=== PATIENT | male | born 1970 | race Caucasian/White ===

== ENCOUNTER 2020-01-09 15:32 | Inpatient (IN) ==
[2020-01-09] MEDS ORDERED: BENZONATATE 100 MG CAPSULE PO ONE (15:49)
[2020-01-09] MEDS ORDERED: SODIUM CHLORIDE 0.9% 1000ML 1,000 ML IV SCH (16:00)
--- NOTE | 2020-01-09 16:06 | XRay Report ---
SINGLE VIEW CHEST CLINICAL HISTORY: Dyspnea. FINDINGS: 2 AP, portable, upright chest radiographs are obtained. No prior studies are available for comparison at the time of dictation. The examination is degraded by portable technique and patient ro tation. The patient is status post midline sternotomy and cardiac valve surgery. The heart is enlarge d. The pulmonary vasculature is noncongested. There is bibasilar atelectasis. The lungs and pleural s paces are otherwise clear. No pneumothorax is seen. The skeletal structures are osteopenic. The bony thorax is grossly intact. IMPRESSION: Cardiomegaly with no acute cardiopulmonary abnormality. ACT 112: Negative or not required by law. Electronically signed by: Khari Flores M.D. 01/09/2020 4:05 PM
[2020-01-09 16:23] LABS: Basophils # (auto) 0.01 K/uL (0-0.2); Basophils % (auto) 0.1 %; Eosinophils # (auto) 0.01 K/uL (0-0.5); Eosinophils % (auto) 0.1 %; Hematocrit (blood only) 44.3 % (42-52); Hemoglobin 14.7 g/dL (14.0-18.0); Immature Granulocytes # (auto) 0.01 K/uL (0.00-0.02); Immature Granulocytes % (auto) 0.1 %; Lymphocytes # (auto) 1.06 K/uL (1.2-3.4); Lymphocytes % (auto) 14.1 %; Mean Corpuscular Hemoglobin 31.7 pg (25-34); Mean Corpuscular Hgb Conc 33.2 g/dL (32-36); Mean Corpuscular Volume 95.7 fL (80-100); Mean Platelet Volume 10.9 fL (7.4-10.4); Monocytes # (auto) 0.85 K/uL (0.11-0.59); Monocytes % (auto) 11.3 %; Neutrophils # (auto) 5.58 K/uL (1.4-6.5); Neutrophils % (auto) 74.3 %; Platelet Count 119 K/uL (130-400); RDW Coefficient of Variation 16.8 % (11.5-14.5); Red Blood Count 4.63 M/uL (4.7-6.1); White Blood Count 7.52 K/uL (4.8-10.8)
[2020-01-09 16:40] LABS: INR 1.1 (0.9-1.1); Partial Thromboplastin Ratio 1.1; Partial Thromboplastin Time 28.5 Seconds (21.0-31.0); Prothrombin Time 11.3 Seconds (9.0-12.0)
[2020-01-09 16:43] LABS: Albumin Level 3.8 gm/dl (3.4-5.0); Calcium 8.7 mg/dl (8.5-10.1); Est GFR (African American) 59.1; Potassium 4.2 mmol/L (3.5-5.1)
[2020-01-09 16:55] LABS: Influenza B virus by PCR Neg for Influ B (Neg)
[2020-01-09 16:58] LABS: Albumin Globulin Ratio 1.1 (0.9-2); Bilirubin,Total 1.1 mg/dl (0.2-1); Globulin 3.5 gm/dl (2.5-4.0); Total Protein 7.3 gm/dl (6.4-8.2); Troponin I 0.114 ng/ml (0-0.045)
[2020-01-09] MEDS ORDERED: OSELTAMIVIR PHOSPHATE 75 MG CAP PO STA (17:09)
[2020-01-09 18:33] LABS: Appearance Urine Clear (Clear); Bacteria Urine Automated Negative (Negative); Bilirubin Urine Negative (Negative); Blood Urine 2+ (Negative); Color Urine Yellow; Epithelial Cell Urine Auto 0-5 /lpf (0-5); Glucose Urine UA Negative (Negative); Ketones Urine Negative (Negative); Leukocyte Esterase Urine Negative (Negative); Nitrite Urine Negative (Negative); Protein Urine Trace (Negative); RBC Urine Automated 0-4 /hpf (0-4); Specific Gravity Urine 1.013 (1.000-1.030); Urobilinogen Urine Negative (Negative)
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
[2020-01-09] MEDS ORDERED: GUAIFENESIN/DEXTROM SYRUP 200MG/20MG 10ML UDC PO PRN (18:49)
[2020-01-09] MEDS ORDERED: ACETAMINOPHEN 325 MG TAB PO PRN (18:49)
[2020-01-09] MEDS ORDERED: ONDANSETRON INJ 2 MG/ML 2 ML VIAL IV PRN (18:49)
[2020-01-09] MEDS: LEVALBUTEROL HCL 0.63 MG/3 ML NEB NEB SCH (19:38)
[2020-01-09] MEDS ORDERED: BENZONATATE 100 MG CAPSULE PO PRN (20:37)
[2020-01-09] MEDS: HEPARIN SODIUM/DEXTROSE 25,000 UNITS/500 ML BAG IV SCH (20:43)
[2020-01-09] MEDS: allopurinoL 300 MG TAB PO SCH (20:44)
[2020-01-09] MEDS: Heparin IV Standard *NO* Bolus IV SCH ×2 (20:54→20:55)
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
[2020-01-09] MEDS: COLCHICINE 0.6 MG TAB PO SCH (21:16)
[2020-01-09] MEDS: ATORVASTATIN 40 MG TAB PO SCH (21:16)
[2020-01-10 00:26] LABS: Appearance Urine Clear (Clear); Bacteria Urine Automated Negative (Negative); Bilirubin Urine Negative (Negative); Blood Urine 2+ (Negative); Cast Urine Automated 0 /lpf (0-5); Color Urine Dark Yellow; Glucose Urine UA Negative (Negative); Ketones Urine Negative (Negative); Leukocyte Esterase Urine Negative (Negative); Nitrite Urine Negative (Negative); Protein Urine 1+ (Negative); Specific Gravity Urine 1.018 (1.000-1.030); Urobilinogen Urine Negative (Negative); WBC Urine Automated 0 /hpf (0-5)
[2020-01-10] MEDS: LEVALBUTEROL HCL 0.63 MG/3 ML NEB NEB SCH ×4 (00:52→18:59)
[2020-01-10 03:25] LABS: Hematocrit (blood only) 41.8 % (42-52); Hemoglobin 14.2 g/dL (14.0-18.0); Mean Corpuscular Hemoglobin 32.2 pg (25-34); Mean Corpuscular Volume 94.8 fL (80-100); Mean Platelet Volume 10.1 fL (7.4-10.4); Platelet Count 110 K/uL (130-400); RDW Coefficient of Variation 16.6 % (11.5-14.5); RDW Standard Deviation 57.8 fL (36.4-46.3); Red Blood Count 4.41 M/uL (4.7-6.1); White Blood Count 6.57 K/uL (4.8-10.8)
[2020-01-10 03:44] LABS: Partial Thromboplastin Ratio 2.4
[2020-01-10 03:47] LABS: Partial Thromboplastin Time 64.3 Seconds (21.0-31.0)
[2020-01-10 03:50] LABS: BUN Creatinine Ratio 19.7 (10-20); Calcium 8.2 mg/dl (8.5-10.1); Creatinine Clr Calc Pharmacy 69.3 ml/min; Est GFR (African American) 56.5; Est GFR (Non-African American) 48.7; Potassium 4.1 mmol/L (3.5-5.1)
[2020-01-10 03:56] LABS: Troponin I 0.127 ng/ml (0-0.045)
[2020-01-10] MEDS: LEVOTHYROXINE SODIUM 50 MCG TABLET PO SCH (05:49)
--- NOTE | 2020-01-10 06:29 | Electrocardiogram Report ---
Test Reason : Blood Pressure : / mmHG Vent. Rate : 088 BPM Atrial Rate : 208 BPM P-R Int : 000 ms QRS Dur : 090 ms QT Int : 370 ms P-R-T Axes : 000 045 -09 degrees QTc Int : 447 ms Atrial fibrillation Low voltage QRS Abnormal ECG No previous ECGs available Confirmed by Nikos Pope ([id number]) on 01/10/2020 6:29:13 AM Referred By: Confirmed By:Nikos Pope
[2020-01-10] MEDS ORDERED: SODIUM CHLORIDE 0.9% 1000ML 250 ML IV ONE (08:15)
[2020-01-10] MEDS: METOPROLOL SUCC 50MG EXT REL TAB PO SCH (08:45)
[2020-01-10] MEDS: allopurinoL 300 MG TAB PO SCH ×2 (08:47→20:42)
[2020-01-10] MEDS: CITALOPRAM 20 MG TAB PO SCH (08:47)
[2020-01-10] MEDS: OSELTAMIVIR PHOSPHATE 75 MG CAP PO SCH ×2 (08:48→20:42)
[2020-01-10] MEDS: ASPIRIN 81 MG ECTAB PO SCH (08:48)
[2020-01-10] MEDS ORDERED: COLCHICINE 0.6 MG TAB PO SCH (09:00)
[2020-01-10] MEDS ORDERED: ATORVASTATIN 40 MG TAB PO SCH (09:00)
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
[2020-01-10] MEDS: HEPARIN SODIUM/DEXTROSE 25,000 UNITS/500 ML BAG IV SCH (12:05)
--- NOTE | 2020-01-10 13:56 | Hospitalist Progress Note ---
Date of Service January 10, 2020 Assessment & Plan (1) Influenza: -01/09/2020: This is a 49-year-old male who has significant PMH of CAD with history of CABG x2, history of mitral valve replacement and tricuspid valve annuloplasty, HTN, HLD, ZEESHAN on CPAP, hypothyroidism, gout who presents to ED secondary to URI symptoms x2 days. In ED he remained hemodynamically stable. He was febrile with a temp of 38.1. He did not require oxygen supplementation. Influenza A+. Other notable lab abnormalities include thrombocytopenia 119, WBC 7.52, monocytosis 25, BUN 33, creatinine 1.57, glucose 109, troponin 0.114. Urinalysis was negative for infection but did reveal trace protein and +2 blood. Chest x-ray was negative for any acute cardiopulmonary abnormality. -01/10/2020 continue Tamiflu, Mucinex (2) Elevated troponin: Atrial Fibrillation -admission EKG revealed A. fib with a heart rate of 88 bpm, which is new for patient -this new onset atrial fibrillation of unknown duration. Patient is asymptomatic in regards to his atrial fibrillation -because [id number] score of 3 (CAD, HTN and hx of CHF), patient was started on heparin drip on 01/09/2020 -Continue Toprol-XL 100 mg daily. -01/10/2020: Patient is on IV heparin drip and cardiology plans to bridge to coumadin and coumadin 5 mg daily is to be started today on 01/10/2020. Goal INR is 2 to 3. continue to monitor on telemetry -as per cardiology, the mildly elevated troponin on this admission is secondary to infectious process from influenza. "No evidence of acute coronary syndrome at this time. Preliminary review of bedside 2D transthoracic echocardiogram demonstrates normal bioprosthetic valve function, preserved LV systolic function, small posterior inferior wall motion abnormality which is unchanged compared to prior studies." (3) CAD (coronary artery disease): -history of CABG x 2, mitral valve replacement, tricuspid valve annuloplasty, ASD repair in 2013 History of CHF 2/2 to valvular heart disease echocardiogram 07/2019 revealed EF 55 to 59%, significant RV enlargement, diffuse right ventricular hypokinesis, mitral valve bioprosthesis present -as per cardiology assessment on this admission, the troponins seen on this stay are not from acute coronary syndrome -Continue metoprolol, Aspirin Hold Lasix and lisinopril - volume status and blood pressure reassess in a.m. Daily weights, strict I's and O's Heart healthy low-sodium diet (4) Hypertension: -home dose Lasix and Lisinopril are held because of low normotensive blood pressures -Continue metoprolol (5) Thrombocytopenia: -appears to have chronic thrombocytopenia -platelet count 09/2017 was 136, admission platelet count 119 -monitor (6) Microscopic hematuria: -urine analysis with +2 RBC even befor systemic anticaogulation was started; however no gross bleeding or gross hematuria (7) HLD (hyperlipidemia): Continue statin (8) ZEESHAN on CPAP: CPAP at bedtime (9) Hypothyroidism: -normal TSH on this admission -Continue home dose levothyroxine (10) Gout: -Continue allopurinol and colchicine (Patient takes indomethacin as needed for gout attacks), no gout attack currently (11) DVT prophylaxis: IV Heparin a bridge to coumadin Admission and Anticipated Discharge Date Admission Date: January 09, 2020 Subjective Patient continues to be in atrial fibrillation with normal heart rate. Breathing on room air. no respiratory distress. denies chest pain or palpitations. reports that coughs he is bringing up sputum. no abdomen pain. no nausea. no vomiting. Patient is on IV heparin drip and cardiology plans to bridge to coumadin and coumadin is to be started today on 01/10/2020 Review of Systems Review of Systems: All systems reviewed & are unremarkable except as noted in HPI & below Physical Exam Constitutional: comfortable Eyes: PERRL, conjunctivae normal, anicteric sclerae EOM intact bilaterally ENMT: external ear and nose normal, oropharynx normal Neck: normal visual inspection Respiratory: normal respiratory effort, lungs clear to auscultation Cardiovascular: RRR, no murmur, no edema Gastrointestinal (Abdomen): normal bowel sounds, soft, nontender, no hepatosplenomegaly Musculoskeletal: Head/Neck/Chest: normocephalic and head atraumatic Neurologic: PERRL, EOMI, accommodation nl, no face palsy, no dysarthria CN's II-XI intact bilaterally Psychiatric: A+Ox3, euthymic affect Results & Data ([facility]) Vital Signs (Past 12 Hours) Vital Signs Temp Pulse Pulse Resp BP Pulse Ox 01/10/20 13:09 80 16 94 01/10/20 11:09 36.7 C 84 18 107/67 97 01/10/20 08:00 100 H 01/10/20 07:56 36.7 C 78 18 97/64 L 94 01/10/20 07:02 82 18 98 01/10/20 04:19 37.1 C 83 19 100/66 95 (1) CAD (coronary artery disease) Associated angina: without angina Coronary Disease-Associated Artery/Lesion type: [place] artery [place] vs. transplanted heart: [place] heart Qualified Code(s): I25.10 - Atherosclerotic heart disease of [place] coronary artery without angina pectoris
[2020-01-10] MEDS: WARFARIN SOD 5 MG TAB PO SCH (15:43)
--- NOTE | 2020-01-10 18:38 | Electrocardiogram Report ---
Test Reason : Blood Pressure : / mmHG Vent. Rate : 090 BPM Atrial Rate : 159 BPM P-R Int : 000 ms QRS Dur : 090 ms QT Int : 372 ms P-R-T Axes : 000 038 -33 degrees QTc Int : 455 ms Atrial fibrillation Abnormal ECG When compared with ECG of 09-JAN-2020 16:02, No significant change was found Confirmed by Nikos Pope ([id number]) on 01/10/2020 6:37:30 PM Referred By: REFERRED SELF Confirmed By:Nikos Pope
[2020-01-10] MEDS: ATORVASTATIN 40 MG TAB PO SCH (20:41)
[2020-01-10] MEDS: COLCHICINE 0.6 MG TAB PO SCH (20:42)
[2020-01-10] MEDS ORDERED: COUGH DROP (SUGAR FREE) LOZ 24 LOZ/1 BOX BUCCAL PRN (21:29)
--- NOTE | 2020-01-10 22:34 | Electrocardiogram Report ---
Test Reason : Blood Pressure : / mmHG Vent. Rate : 089 BPM Atrial Rate : 000 BPM P-R Int : 000 ms QRS Dur : 090 ms QT Int : 382 ms P-R-T Axes : 000 013 -14 degrees QTc Int : 464 ms Atrial fibrillation Abnormal ECG When compared with ECG of 09-JAN-2020 19:52, No significant change was found Confirmed by Nikos Pope ([id number]) on 01/10/2020 10:34:56 PM Referred By: REFERRED SELF Confirmed By:Nikso Pope
[2020-01-11] MEDS: LEVALBUTEROL HCL 0.63 MG/3 ML NEB NEB SCH ×2 (00:48→07:32)
[2020-01-11] MEDS: HEPARIN SODIUM/DEXTROSE 25,000 UNITS/500 ML BAG IV SCH (03:49)
[2020-01-11] MEDS: LEVOTHYROXINE SODIUM 50 MCG TABLET PO SCH (03:50)
[2020-01-11 05:47] LABS: Hematocrit (blood only) 41.7 % (42-52); Hemoglobin 13.7 g/dL (14.0-18.0); Mean Corpuscular Hemoglobin 31.3 pg (25-34); Mean Corpuscular Hgb Conc 32.9 g/dL (32-36); Mean Corpuscular Volume 95.2 fL (80-100); RDW Coefficient of Variation 16.3 % (11.5-14.5); RDW Standard Deviation 56.8 fL (36.4-46.3); Red Blood Count 4.38 M/uL (4.7-6.1); White Blood Count 4.33 K/uL (4.8-10.8)
[2020-01-11 06:06] LABS: Partial Thromboplastin Ratio > 5.1
[2020-01-11 06:08] LABS: Mean Platelet Volume 10.5 fL (7.4-10.4); Platelet Count 90 K/uL (130-400)
[2020-01-11 06:09] LABS: Basophils # (auto) 0.01 K/uL (0-0.2); Basophils % (auto) 0.2 %; Eosinophils # (auto) 0.11 K/uL (0-0.5); Eosinophils % (auto) 2.5 %; Lymphocytes # (auto) 1.18 K/uL (1.2-3.4); Lymphocytes % (auto) 27.3 %; Monocytes # (auto) 0.44 K/uL (0.11-0.59); Monocytes % (auto) 10.2 %; Neutrophils # (auto) 2.59 K/uL (1.4-6.5); Neutrophils % (auto) 59.8 %; Platelet Estimate Decreased (Normal)
[2020-01-11 06:15] LABS: Partial Thromboplastin Time > 139.0 Seconds (21.0-31.0)
[2020-01-11 06:21] LABS: BUN Creatinine Ratio 20.8 (10-20); Calcium 8.2 mg/dl (8.5-10.1); Creatinine Clr Calc Pharmacy 91.9 ml/min; Est GFR (African American) 79.4; Est GFR (Non-African American) 68.5; Potassium 4.1 mmol/L (3.5-5.1)
[2020-01-11 07:54] LABS: Partial Thromboplastin Time 80.6 Seconds (21.0-31.0)
[2020-01-11] MEDS: CITALOPRAM 20 MG TAB PO SCH (08:19)
[2020-01-11] MEDS: METOPROLOL SUCC 50MG EXT REL TAB PO SCH (08:20)
[2020-01-11] MEDS: allopurinoL 300 MG TAB PO SCH ×2 (08:20→20:31)
[2020-01-11] MEDS: ASPIRIN 81 MG ECTAB PO SCH (08:20)
[2020-01-11] MEDS: OSELTAMIVIR PHOSPHATE 75 MG CAP PO SCH ×2 (08:20→20:30)
--- NOTE | 2020-01-11 10:09 | Hospitalist Progress Note ---
Date of Service January 11, 2020 Assessment & Plan (1) Influenza: -01/09/2020: This is a 49-year-old male who has significant PMH of CAD with history of CABG x2, history of mitral valve replacement and tricuspid valve annuloplasty, HTN, HLD, ZEESHAN on CPAP, hypothyroidism, gout who presents to ED secondary to URI symptoms x2 days. In ED he remained hemodynamically stable. He was febrile with a temp of 38.1. He did not require oxygen supplementation. Influenza A+. Other notable lab abnormalities include thrombocytopenia 119, WBC 7.52, monocytosis 25, BUN 33, creatinine 1.57, glucose 109, troponin 0.114. Urinalysis was negative for infection but did reveal trace protein and +2 blood. Chest x-ray was negative for any acute cardiopulmonary abnormality. -01/10/2020 , 01/11/2020 continue Tamiflu, Mucinex (2) Elevated troponin: Atrial Fibrillation -admission EKG revealed A. fib with a heart rate of 88 bpm, which is new for patient -this new onset atrial fibrillation of unknown duration. Patient is asymptomatic in regards to his atrial fibrillation -because [id number] score of 3 (CAD, HTN and hx of CHF), patient was started on heparin drip on 01/09/2020 -Continue Toprol-XL 100 mg daily. -01/10/2020: Patient is on IV heparin drip and cardiology plans to bridge to coumadin and coumadin 5 mg daily is to be started on 01/10/2020. Goal INR is 2 to 3. continue to monitor on telemetry -as per cardiology, the mildly elevated troponin on this admission is secondary to infectious process from influenza. "No evidence of acute coronary syndrome at this time. Preliminary review of bedside 2D transthoracic echocardiogram demonstrates normal bioprosthetic valve function, preserved LV systolic function, small posterior inferior wall motion abnormality which is unchanged compared to prior studies." -01/11/2020 because patient has bioprosthetic valve and continues to have atrial fibrillation, NOACs are not indicated as per cardiology service, therefor patient remains on heparin drip with daily coumadin, will trend the INR daily (3) CAD (coronary artery disease): -history of CABG x 2, mitral valve replacement, tricuspid valve annuloplasty, ASD repair in 2013 History of CHF 2/2 to valvular heart disease echocardiogram 07/2019 revealed EF 55 to 59%, significant RV enlargement, diffuse right ventricular hypokinesis, mitral valve bioprosthesis present -as per cardiology assessment on this admission, the troponins seen on this stay are not from acute coronary syndrome -Continue metoprolol, Aspirin Hold Lasix and lisinopril - volume status and blood pressure reassess in a.m. Daily weights, strict I's and O's Heart healthy low-sodium diet (4) Hypertension: -home dose Lasix and Lisinopril are held because of low normotensive blood pressures -Continue metoprolol (5) Thrombocytopenia: -appears to have chronic thrombocytopenia -platelet count 09/2017 was 136, admission platelet count 119 -monitor (6) Microscopic hematuria: -urine analysis with +2 RBC even befor systemic anticaogulation was started; however no gross bleeding or gross hematuria (7) HLD (hyperlipidemia): Continue statin (8) ZEESHAN on CPAP: CPAP at bedtime (9) Hypothyroidism: -normal TSH on this admission -Continue home dose levothyroxine (10) Gout: -Continue allopurinol and colchicine (Patient takes indomethacin as needed for gout attacks), no gout attack currently (11) DVT prophylaxis: IV Heparin a bridge to coumadin Admission and Anticipated Discharge Date Admission Date: January 09, 2020 admission date. discharge date depends on cardiology service and INR levels Subjective Patient continues to have atrial fibrillation which is rate controlled and remains on systemic anticoagulation. Clinically patient appears well. no palpitations. no chest pain. breathing comfortably on room air. no abdomen pain. no vomiting. no dizziness. no headache. no problems with urinating or with bowel movements Review of Systems Review of Systems: All systems reviewed & are unremarkable except as noted in HPI & below Physical Exam Constitutional: comfortable Eyes: PERRL, conjunctivae normal, anicteric sclerae EOM intact bilaterally ENMT: external ear and nose normal, oropharynx normal Neck: normal visual inspection Respiratory: normal respiratory effort, lungs clear to auscultation Cardiovascular: RRR, no murmur, no edema Gastrointestinal (Abdomen): normal bowel sounds, soft, nontender, no hepatosplenomegaly Musculoskeletal: Head/Neck/Chest: normocephalic and head atraumatic Neurologic: PERRL, EOMI, accommodation nl, no face palsy, no dysarthria CN's II-XI intact bilaterally Psychiatric: A+Ox3, euthymic affect Results & Data ([facility]) Vital Signs (Past 12 Hours) Vital Signs Temp Pulse Resp BP Pulse Ox 01/11/20 07:57 36.3 C L 92 H 18 116/77 93 01/11/20 07:34 77 20 100 01/11/20 03:33 36.6 C 85 20 117/74 96 01/11/20 00:50 99 H 16 95 01/10/20 23:19 36.8 C 65 18 98/55 L 98 (1) CAD (coronary artery disease) Associated angina: without angina Coronary Disease-Associated Artery/Lesion type: [place] artery [place] vs. transplanted heart: [place] heart Qualified Code(s): I25.10 - Atherosclerotic heart disease of [place] coronary artery without angina pectoris
--- NOTE | 2020-01-11 10:44 | Cardiology Progress Note ---
Date of Service January 11, 2020 Assessment & Plan (1) Paroxysmal atrial fibrillation: (2) S/P MVR (mitral valve replacement): (3) S/P CABG x 2: (4) CAD (coronary artery disease): (5) Influenza: (6) Elevated troponin: 49-year-old patient with complex cardiovascular disease admitted with acute influenza a infection and new onset atrial fibrillation of unknown duration. Borderline rate control noted on telemetry. Previous dose of warfarin 7.5 mg daily 6 days/week, 5 mg 1 day/week. Recommend titration of Toprol-XL to 125 mg daily. Give 10 mg oral warfarin today. Close follow-up with [facility] anticoagulation clinic. Supportive care, treatment of acute influenza infection as per internal medicine. Outpatient cardiology follow-up in 2 to 4 weeks. Subjective Patient seen and examined at the bedside. Resting comfortably. Heart rate with borderline control on telemetry. Denies chest pain, palpitations, lightheadedness, dizziness, or near syncope. Outpatient [facility] records reviewed regarding previous dosing of Coumadin. Patient taking 7.5 mg daily 6 days/week, 5 mg 1 day/week. Cough unchanged. Offers no other concerns/complaints this time. Review of Systems Review of Systems: All systems reviewed & are unremarkable except as noted in HPI & below Physical Exam Constitutional: well developed, well nourished and + ill appearing; no acute distress Respiratory: + cough Auscultation: + rhonchi; no crackles, no rales and no wheezes Cardiovascular: Rate/Rhythm: + irregularly irregular Heart Sounds: normal S1 and normal S2; no murmur and no cardiac rub Palpation: normal PMI Vessels: normal peripheral pulses; no JVD Extremities: no edema Gastrointestinal (Abdomen): Inspection/Auscultation: abdomen normal to inspection and normal bowel sounds; abdomen not distended Percussion/Palpation: abdomen soft; abdomen nontender, no guarding and abdomen not rigid Musculoskeletal: Extremities: strength 5/5 throughout Skin: no rashes, warm and dry Neurologic: moves all extremities; no focal motor deficits Psychiatric: A+Ox3, euthymic affect Results & Data Vital Signs (Past 12 Hours) Vital Signs Temp Pulse Resp BP Pulse Ox 01/11/20 07:57 36.3 C L 92 H 18 116/77 93 01/11/20 07:34 77 20 100 01/11/20 03:33 36.6 C 85 20 117/74 96 01/11/20 00:50 99 H 16 95 01/10/20 23:19 36.8 C 65 18 98/55 L 98 (1) CAD (coronary artery disease) Coronary Disease-Associated Artery/Lesion type: [place] artery [place] vs. transplanted heart: [place] heart Associated angina: without angina Qualified Code(s): I25.10 - Atherosclerotic heart disease of [place] coronary artery without angina pectoris
[2020-01-11 11:01] LABS: Prothrombin Time 10.7 Seconds (9.0-12.0)
[2020-01-11 14:47] LABS: Partial Thromboplastin Ratio 2.7; Prothrombin Time 10.7 Seconds (9.0-12.0)
[2020-01-11 14:55] LABS: Partial Thromboplastin Time 72.5 Seconds (21.0-31.0)
[2020-01-11] MEDS: WARFARIN SOD 5 MG TAB PO SCH (16:58)
[2020-01-11] MEDS ORDERED: WARFARIN SOD 5 MG TAB PO ONE (17:00)
[2020-01-11] MEDS: ATORVASTATIN 40 MG TAB PO SCH (20:30)
[2020-01-11] MEDS: COLCHICINE 0.6 MG TAB PO SCH (20:31)
[2020-01-11] MEDS: METOPROLOL SUCC 25MG EXT REL TAB PO SCH (20:31)
--- NOTE | 2020-01-11 21:50 | Electrocardiogram Report ---
Test Reason : Blood Pressure : / mmHG Vent. Rate : 095 BPM Atrial Rate : 000 BPM P-R Int : 000 ms QRS Dur : 094 ms QT Int : 386 ms P-R-T Axes : 000 077 -23 degrees QTc Int : 485 ms Atrial fibrillation Nonspecific T wave abnormality Prolonged QT Abnormal ECG When compared with ECG of 10-JAN-2020 06:42, Questionable change in QRS axis Nonspecific T wave abnormality now evident in Lateral leads Confirmed by Nikos Pope ([id number]) on 01/11/2020 9:50:19 PM Referred By: REFERRED SELF Confirmed By:Nikos Pope
[2020-01-11 22:27] LABS: Partial Thromboplastin Ratio 2.8
[2020-01-11 22:44] LABS: Partial Thromboplastin Time 76.9 Seconds (21.0-31.0)
[2020-01-12] MEDS: HEPARIN SODIUM/DEXTROSE 25,000 UNITS/500 ML BAG IV SCH ×2 (00:45→01:12)
[2020-01-12 05:20] LABS: INR 1.1 (0.9-1.1); Partial Thromboplastin Ratio 2.3; Prothrombin Time 11.3 Seconds (9.0-12.0)
[2020-01-12 05:26] LABS: Partial Thromboplastin Time 61.1 Seconds (21.0-31.0)
[2020-01-12] MEDS: LEVOTHYROXINE SODIUM 50 MCG TABLET PO SCH (06:01)
[2020-01-12] MEDS: CITALOPRAM 20 MG TAB PO SCH (08:39)
[2020-01-12] MEDS: OSELTAMIVIR PHOSPHATE 75 MG CAP PO SCH ×2 (08:39→20:11)
[2020-01-12] MEDS: allopurinoL 300 MG TAB PO SCH ×2 (08:39→20:10)
[2020-01-12] MEDS: ASPIRIN 81 MG ECTAB PO SCH (08:39)
[2020-01-12] MEDS: METOPROLOL SUCC 50MG EXT REL TAB PO SCH (12:17)
--- NOTE | 2020-01-12 12:45 | Hospitalist Progress Note ---
Date of Service January 12, 2020 Assessment & Plan (1) Influenza: -01/09/2020: This is a 49-year-old male who has significant PMH of CAD with history of CABG x2, history of mitral valve replacement and tricuspid valve annuloplasty, HTN, HLD, ZEESHAN on CPAP, hypothyroidism, gout who presents to ED secondary to URI symptoms x2 days. In ED he remained hemodynamically stable. He was febrile with a temp of 38.1. He did not require oxygen supplementation. Influenza A+. Other notable lab abnormalities include thrombocytopenia 119, WBC 7.52, monocytosis 25, BUN 33, creatinine 1.57, glucose 109, troponin 0.114. Urinalysis was negative for infection but did reveal trace protein and +2 blood. Chest x-ray was negative for any acute cardiopulmonary abnormality. -01/10/2020 , 01/11/2020 continue Tamiflu, Mucinex (2) Elevated troponin: Atrial Fibrillation -admission EKG revealed A. fib with a heart rate of 88 bpm, which is new for patient -this new onset atrial fibrillation of unknown duration. Patient is asymptomatic in regards to his atrial fibrillation -because [id number] score of 3 (CAD, HTN and hx of CHF), patient was started on heparin drip on 01/09/2020 -Continue Toprol-XL 100 mg daily. -01/10/2020: Patient is on IV heparin drip and cardiology plans to bridge to coumadin and coumadin 5 mg daily is to be started on 01/10/2020. Goal INR is 2 to 3. continue to monitor on telemetry -as per cardiology, the mildly elevated troponin on this admission is secondary to infectious process from influenza. "No evidence of acute coronary syndrome at this time. Preliminary review of bedside 2D transthoracic echocardiogram demonstrates normal bioprosthetic valve function, preserved LV systolic function, small posterior inferior wall motion abnormality which is unchanged compared to prior studies." -01/11/2020 because patient has bioprosthetic valve and continues to have atrial fibrillation, NOACs are not indicated as per cardiology service, therefor patient remains on heparin drip with daily coumadin. patient got additional coumadin by cardiology and total dose was 10 mg. -01/12/2020 INR is still subtherapeutic. Continue coumadin 5 mg daily for now and recheck INR on 01/13/2020 while on IV heparin drip. (3) CAD (coronary artery disease): -history of CABG x 2, mitral valve replacement, tricuspid valve annuloplasty, ASD repair in 2014 History of CHF 2/2 to valvular heart disease echocardiogram 07/2019 revealed EF 55 to 59%, significant RV enlargement, diffuse right ventricular hypokinesis, mitral valve bioprosthesis present -as per cardiology assessment on this admission, the troponins seen on this stay are not from acute coronary syndrome -Continue metoprolol, Aspirin Hold Lasix and lisinopril - volume status and blood pressure reassess in a.m. Daily weights, strict I's and O's Heart healthy low-sodium diet (4) Hypertension: -home dose Lasix and Lisinopril are held because of low normotensive blood pressures -Continue metoprolol (5) Thrombocytopenia: -appears to have chronic thrombocytopenia -platelet count 09/2017 was 136K, admission platelet count 119K -platelets are 90K on 01/12/2020 (6) Microscopic hematuria: -urine analysis with +2 RBC even befor systemic anticaogulation was started; however no gross bleeding or gross hematuria (7) HLD (hyperlipidemia): Continue statin (8) ZEESHAN on CPAP: CPAP at bedtime (9) Hypothyroidism: -normal TSH on this admission -Continue home dose levothyroxine (10) Gout: -Continue allopurinol and colchicine (Patient takes indomethacin as needed for gout attacks), no gout attack currently (11) DVT prophylaxis: IV Heparin a bridge to coumadin Admission and Anticipated Discharge Date Admission Date: January 09, 2020 Subjective Patient continues to have atrial fibrillation. has occasional dry cough. breathing comfortbly on room air. no abdomen pain. no dizziness. no headache. denies chest pain or palpitations Review of Systems Review of Systems: All systems reviewed & are unremarkable except as noted in HPI & below Physical Exam Constitutional: comfortable Eyes: PERRL, conjunctivae normal, anicteric sclerae EOM intact bilaterally ENMT: external ear and nose normal, oropharynx normal Neck: normal visual inspection Respiratory: normal respiratory effort, lungs clear to auscultation Cardiovascular: RRR, no murmur, no edema Gastrointestinal (Abdomen): normal bowel sounds, soft, nontender, no hepatosplenomegaly Musculoskeletal: Head/Neck/Chest: normocephalic and head atraumatic Neurologic: PERRL, EOMI, accommodation nl, no face palsy, no dysarthria CN 's II-XI intact bilaterally Psychiatric: A+Ox3, euthymic affect Results & Data ([facility]) Vital Signs (Past 12 Hours) Vital Signs Temp Pulse Pulse Resp BP BP Pulse Ox 01/12/20 12:09 36.6 C 70 18 101/68 96 01/12/20 08:00 75 01/12/20 07:45 36.7 C 69 18 106/73 93 01/12/20 03:02 36.5 C 67 22 116/76 94 (1) CAD (coronary artery disease) Coronary Disease-Associated Artery/Lesion type: [place] artery [place] vs. transplanted heart: [place] heart Associated angina: without angina Qualified Code(s): I25.10 - Atherosclerotic heart disease of [place] coronary artery without angina pectoris
[2020-01-12] MEDS: WARFARIN SOD 5 MG TAB PO SCH (16:58)
[2020-01-12] MEDS: METOPROLOL SUCC 25MG EXT REL TAB PO SCH (20:10)
[2020-01-12] MEDS: ATORVASTATIN 40 MG TAB PO SCH (20:10)
[2020-01-12] MEDS: COLCHICINE 0.6 MG TAB PO SCH (20:13)
[2020-01-13] MEDS: HEPARIN SODIUM/DEXTROSE 25,000 UNITS/500 ML BAG IV SCH ×2 (00:07→23:51)
[2020-01-13] MEDS: LEVOTHYROXINE SODIUM 50 MCG TABLET PO SCH (05:43)
[2020-01-13 06:50] LABS: Hematocrit (blood only) 39.1 % (42-52); Mean Corpuscular Hemoglobin 31.6 pg (25-34); Mean Corpuscular Hgb Conc 33.2 g/dL (32-36); Mean Corpuscular Volume 95.1 fL (80-100); Platelet Count 112 K/uL (130-400); RDW Standard Deviation 55.8 fL (36.4-46.3); Red Blood Count 4.11 M/uL (4.7-6.1); White Blood Count 4.09 K/uL (4.8-10.8)
[2020-01-13 07:11] LABS: Partial Thromboplastin Ratio 1.8
[2020-01-13 07:18] LABS: Partial Thromboplastin Time 47.6 Seconds (21.0-31.0)
[2020-01-13 07:55] LABS: INR 1.6 (0.9-1.1); Prothrombin Time 15.6 Seconds (9.0-12.0)
[2020-01-13] MEDS: METOPROLOL SUCC 50MG EXT REL TAB PO SCH (08:11)
[2020-01-13] MEDS: ASPIRIN 81 MG ECTAB PO SCH (08:11)
[2020-01-13] MEDS: CITALOPRAM 20 MG TAB PO SCH (08:11)
[2020-01-13] MEDS: OSELTAMIVIR PHOSPHATE 75 MG CAP PO SCH ×2 (08:11→21:20)
[2020-01-13] MEDS: allopurinoL 300 MG TAB PO SCH ×2 (08:11→21:22)
--- NOTE | 2020-01-13 08:41 | Hospitalist Progress Note ---
Date of Service January 13, 2020 Assessment & Plan (1) Influenza: -01/09/2020: This is a 49-year-old male who has significant PMH of CAD with history of CABG x2, history of mitral valve replacement and tricuspid valve annuloplasty, HTN, HLD, ZEESHAN on CPAP, hypothyroidism, gout who presents to ED secondary to URI symptoms x2 days. In ED he remained hemodynamically stable. He was febrile with a temp of 38.1. He did not require oxygen supplementation. Influenza A+. Other notable lab abnormalities include thrombocytopenia 119, WBC 7.52, monocytosis 25, BUN 33, creatinine 1.57, glucose 109, troponin 0.114. Urinalysis was negative for infection but did reveal trace protein and +2 blood. Chest x-ray was negative for any acute cardiopulmonary abnormality. -01/10/2020 , 01/11/2020 continue Tamiflu, Mucinex (2) Elevated troponin: Atrial Fibrillation -admission EKG revealed A. fib with a heart rate of 88 bpm, which is new for patient -this new onset atrial fibrillation of unknown duration. Patient is asymptomatic in regards to his atrial fibrillation -because [id number] score of 3 (CAD, HTN and hx of CHF), patient was started on heparin drip on 01/09/2020 -on Toprol-XL -01/10/2020: Patient is on IV heparin drip and cardiology plans to bridge to coumadin and coumadin 5 mg daily is to be started on 01/10/2020. Goal INR is 2 to 3. continue to monitor on telemetry -as per cardiology, the mildly elevated troponin on this admission is secondary to infectious process from influenza. "No evidence of acute coronary syndrome at this time. Preliminary review of bedside 2D transthoracic echocardiogram demonstrates normal bioprosthetic valve function, preserved LV systolic function, small posterior inferior wall motion abnormality which is unchanged compared to prior studies." -01/11/2020 because patient has bioprosthetic valve and continues to have atrial fibrillation, NOACs are not indicated as per cardiology service, therefor patient remains on heparin drip with daily coumadin. patient got additional coumadin by cardiology and total dose was 10 mg. -01/12/2020 INR is still subtherapeutic. Continue coumadin 5 mg daily for now and recheck INR on 01/13/2020 while on IV heparin drip. -01/13/2020. INR is 1.6. Patient on heparin drip. no chest pain. no palpitations. breathing on room air. no dizziness. no lightheadness. no hematuria. telemetry generally shows heart rate in the 80s but questionable episodes of bradycardia. patient received metoprolol at night as 25 mg and already got metoprolol 100 mg this AM. will plan on just continuing metoprolol 75 mg daily starting on 01/14/2020. currently continue heparin drip and coumadin as 5 mg daily (3) CAD (coronary artery disease): -history of CABG x 2, mitral valve replacement, tricuspid valve annuloplasty, ASD repair in 2013 History of CHF 2/2 to valvular heart disease echocardiogram 07/2019 revealed EF 55 to 59%, significant RV enlargement, diffuse right ventricular hypokinesis, mitral valve bioprosthesis present -as per cardiology assessment on this admission, the troponins seen on this stay are not from acute coronary syndrome -on metoprolol, Aspirin Hold Lasix and lisinopril - volume status and blood pressure reassess in a.m. Daily weights, strict I's and O's Heart healthy low-sodium diet (4) Hypertension: -home dose Lasix and Lisinopril are held because of low normotensive blood pressures -Continue metoprolol (5) Thrombocytopenia: -appears to have chronic thrombocytopenia -platelet count 09/2017 was 136K, admission platelet count 119K -platelets are 90K on 01/12/2020 -123 K on 01/13/2020 (6) Microscopic hematuria: -urine analysis with +2 RBC even before systemic anticaogulation was st arted; however no gross bleeding or gross hematuria (7) HLD (hyperlipidemia): Continue statin (8) ZEESHAN on CPAP: CPAP at bedtime (9) Hypothyroidism: -normal TSH on this admission -Continue home dose levothyroxine (10) Gout: -Continue allopurinol and colchicine (Patient takes indomethacin as needed for gout attacks), no gout attack currently (11) DVT prophylaxis: IV Heparin a bridge to coumadin Admission and Anticipated Discharge Date Admission Date: January 09, 2020 Subjective INR is 1.6. Patient on heparin drip. Patient on heparin drip. no chest pain. no palpitations. breathing on room air. no dizziness. no lightheadness. no hematuria.telemetry generally shows heart rate in the 80s but questionable episodes of bradycardia. patient received metoprolol at night as 25 mg and already got metoprolol 100 mg this AM. will plan on just continuing metoprolol 75 mg daily starting on 01/14/2020. currently continue heparin drip and coumadin as 5 mg daily Review of Systems Review of Systems: All systems reviewed & are unremarkable except as noted in HPI & below Physical Exam Constitutional: comfortable Eyes: PERRL, conjunctivae normal, anicteric sclerae EOM intact bilaterally ENMT: external ear and nose normal, oropharynx normal Neck: normal visual inspection Respiratory: normal respiratory effort, lungs clear to auscultation Cardiovascular: RRR, no murmur, no edema Gastrointestinal (Abdomen): normal bowel sounds, soft, nontender, no hepatosplenomegaly Musculoskeletal: Head/Neck/Chest: normocephalic and head atraumatic Neurologic: PERRL, EOMI, accommodation nl, no face palsy, no dysarthria CN's II-XI intact bilaterally Psychiatric: A+Ox3, euthymic affect Results & Data ([facility]) Vital Signs (Past 12 Hours) Vital Signs Temp Pulse Pulse Resp BP BP Pulse Ox 01/13/20 07:29 36.7 C 53 L 16 118/86 95 01/13/20 02:57 36.7 C 75 16 95/61 L 98 01/13/20 02:29 66 01/12/20 22:49 36.7 C 71 18 110/75 95 (1) CAD (coronary artery disease) Coronary Disease-Associated Artery/Lesion type: [place] artery [place] vs. transplanted heart: [place] heart Associated angina: without angina Qualified Code(s): I25.10 - Atherosclerotic heart disease of [place] coronary artery without angina pectoris
[2020-01-13] MEDS: WARFARIN SOD 5 MG TAB PO SCH (16:50)
[2020-01-13] MEDS: COLCHICINE 0.6 MG TAB PO SCH (21:20)
[2020-01-13] MEDS: ATORVASTATIN 40 MG TAB PO SCH (21:21)
[2020-01-14] MEDS: LEVOTHYROXINE SODIUM 50 MCG TABLET PO SCH (06:09)
[2020-01-14 07:19] LABS: Hematocrit (blood only) 41.4 % (42-52); Hemoglobin 13.5 g/dL (14.0-18.0); Mean Corpuscular Hgb Conc 32.6 g/dL (32-36); Mean Corpuscular Volume 95.2 fL (80-100); Mean Platelet Volume 10.5 fL (7.4-10.4); Platelet Count 120 K/uL (130-400); RDW Standard Deviation 55.5 fL (36.4-46.3); Red Blood Count 4.35 M/uL (4.7-6.1); White Blood Count 5.29 K/uL (4.8-10.8)
[2020-01-14 07:43] LABS: INR 1.8 (0.9-1.1); Partial Thromboplastin Ratio 2.2
[2020-01-14 07:55] LABS: Partial Thromboplastin Time 60.2 Seconds (21.0-31.0)
[2020-01-14] MEDS: ASPIRIN 81 MG ECTAB PO SCH (08:05)
[2020-01-14] MEDS: CITALOPRAM 20 MG TAB PO SCH (08:05)
[2020-01-14] MEDS: OSELTAMIVIR PHOSPHATE 75 MG CAP PO SCH (08:05)
[2020-01-14] MEDS: allopurinoL 300 MG TAB PO SCH (08:05)
[2020-01-14] MEDS ORDERED: METOPROLOL SUCC 25MG EXT REL TAB PO SCH (09:00)
--- NOTE | 2020-01-14 10:36 | Hospitalist Progress Note ---
Date of Service January 14, 2020 Assessment & Plan (1) Influenza: -01/09/2020: This is a 49-year-old male who has significant PMH of CAD with history of CABG x2, history of mitral valve replacement and tricuspid valve annuloplasty, HTN, HLD, ZEESHAN on CPAP, hypothyroidism, gout who presents to ED secondary to URI symptoms x2 days. In ED he remained hemodynamically stable. He was febrile with a temp of 38.1. He did not require oxygen supplementation. Influenza A+. Other notable lab abnormalities include thrombocytopenia 119, WBC 7.52, monocytosis 25, BUN 33, creatinine 1.57, glucose 109, troponin 0.114. Urinalysis was negative for infection but did reveal trace protein and +2 blood. Chest x-ray was negative for any acute cardiopulmonary abnormality. -patient completed 5 days of Tamiflu (2) Elevated troponin: Atrial Fibrillation -admission EKG revealed A. fib with a heart rate of 88 bpm, which is new for patient -this new onset atrial fibrillation of unknown duration. Patient is asymptomatic in regards to his atrial fibrillation -because [id number] score of 3 (CAD, HTN and hx of CHF), patient was started on heparin drip on 01/09/2020 -on Toprol-XL -01/10/2020: Patient is on IV heparin drip and cardiology plans to bridge to coumadin and coumadin 5 mg daily is to be started on 01/10/2020. Goal INR is 2 to 3. continue to monitor on telemetry -as per cardiology, the mildly elevated troponin on this admission is secondary to infectious process from influenza. "No evidence of acute coronary syndrome at this time. Preliminary review of bedside 2D transthoracic echocardiogram demonstrates normal bioprosthetic valve function, preserved LV systolic function, small posterior inferior wall motion abnormality which is unchanged compared to prior studies." -01/11/2020 because patient has bioprosthetic valve and continues to have atrial fibrillation, NOACs are not indicated as per cardiology service, therefor patient remains on heparin drip with daily coumadin. patient got additional coumadin by cardiology and total dose was 10 mg. -01/12/2020 INR is still subtherapeutic. Continue coumadin 5 mg daily for now and recheck INR on 01/13/2020 while on IV heparin drip. -01/13/2020. INR is 1.6. Patient on heparin drip. no chest pain. no palpitations. breathing on room air. no dizziness. no lightheadness. no hematuria. telemetry generally shows heart rate in the 80s but questionable episodes of bradycardia. patient received metoprolol at night as 25 mg and already got metoprolol 100 mg this AM. will plan on just continuing metoprolol 75 mg daily starting on 01/14/2020. currently continue heparin drip and coumadin as 5 mg daily -01/14/2020: INR on 01/14/2020 is 1.8 with the IV heparin drip Patient wants to go home on 01/14/2020 with the persistent atrial fibrillation and heart rates in the 50s -home dose Lasix and Lisinopril are held in the hospital because of low normotensive blood pressures while in hospital -Continue metoprolol, patient on a reduced dose now and therefore should be able to resume lisinopril on discharge. Patient also have IV volume load of 5 days of IV heparin therapy and may continue home dose Lasix discharge medication sent electronically to [facility] [address] [place] [id number] Patient has scheduled follow ups with 01/18/2020 1:40 PM Provider MARCO Osborn Jr.C Department [facility] (will need INR check by primary care doctor or follow-up with [facility] anticoagulation clinic) 01/22/2020 8:00 AM Provider GÉNESIS Perry Department Cardiology, [place] 01/29/2020 11:30 AM Provider GÉNESIS Harris Department Pulmonary Medicine, [facility] 03/18/2020 1:30 PM Provider GÉNESIS Perry Department Cardiology, [place] (3) CAD (coronary artery disease): -history of CABG x 2, mitral valve replacement, tricuspid valve annuloplasty, ASD repair in 2013 History of CHF 2/2 to valvular heart disease echocardiogram 07/2019 revealed EF 55 to 59%, significant RV enlargement, diffuse right ventricular hypokinesis, mitral valve bioprosthesis present -as per cardiology assessment on this admission, the troponins seen on this stay are not from acute coronary syndrome -on metoprolol, Aspirin Hold Lasix and lisinopril - volume status and blood pressure reassess in a.m. Daily weights, strict I's and O's Heart healthy low-sodium diet (4) Hypertension: -home dose Lasix and Lisinopril are held in the hospital because of low normotensive blood pressures while in hospital -Continue metoprolol, patient on a reduced dose now and therefore should be able to resume lisinopril on discharge. Patient also have IV volume load of 5 days of IV heparin therapy and may continue home dose Lasix (5) Thrombocytopenia: -appears to have chronic thrombocytopenia -platelet count 09/2017 was 136K, admission platelet count 119K -platelets are 90K on 01/12/2020 -123 K on 01/13/2020 (6) Microscopic hematuria: -urine analysis with +2 RBC even before systemic anticaogulation was started; however no gross bleeding or gross hematuria (7) HLD (hyperlipidemia): Continue statin (8) ZEESHAN on CPAP: CPAP at bedtime (9) Hypothyroidism: -normal TSH on this admission -Continue home dose levothyroxine (10) Gout: -Continue allopurinol and colchicine (Patient takes indomethacin as needed for gout attacks), no gout attack currently (11) DVT prophylaxis: IV Heparin a bridge to coumadin Admission and Anticipated Discharge Date Admission Date: January 09, 2020 Subjective Patient wants to go home on 01/14/2020 with the persistent atrial fibrillation and heart rates in the 50s. Patient wishes to be discharged. No acute distress. no dizziness. no palpitations. no nausea. no vomiting. no headache. breathing on room air. Review of Systems Review of Systems: All systems reviewed & are unremarkable except as noted in HPI & below Physical Exam Constitutional: comfortable Eyes: PERRL, conjunctivae normal, anicteric sclerae EOM intact bilaterally ENMT: external ear and nose normal, oropharynx normal Neck: normal visual inspection Respiratory: normal respiratory effort, lungs clear to auscultation Cardiovascular: Rate/Rhythm: + bradycardic and + irregularly irregular Gastrointestinal (Abdomen): normal bowel sounds, soft, nontender, no hepatosplenomegaly Musculoskeletal: Head/Neck/Chest: normocephalic and head atraumatic Neurologic: PERRL, EOMI, accommodation nl, no face palsy, no dysarthria CN's II-XI intact bilaterally Psychiatric: A+Ox3, euthymic affect Results & Data ([facility]) Vital Signs (Past 12 Hours) Vital Signs Temp Pulse Resp BP Pulse Ox 01/14/20 07:41 36.4 C L 57 L 16 106/69 95 (1) CAD (coronary artery disease) Associated angina: without angina Coronary Disease-Associated Artery/Lesion type: [place] artery [place] vs. transplanted heart: [place] heart Qualified Code(s): I25.10 - Atherosclerotic heart disease of [place] coronary artery without angina pectoris
--- NOTE | 2020-01-14 10:41 | Discharge Summary ---
Date of Service January 14, 2020 Admission HPI Per Admitting Provider This is a 49-year-old male who has significant PMH of CAD with history of CABG x2, history of mitral valve replacement and tricuspid valve annuloplasty, HTN, HLD, ZEESHAN on CPAP, hypothyroidism, gout who presents to ED secondary to URI symptoms x2 days. Symptoms started Tuesday evening when he developed dry cough, myalgias, arthralgias, chills, sweats and wheezing. Symptoms persisted and continued to worsen. Cough has become more productive alternating between clear sputum and purulent sputum. He overall has poor appetite and poor p.o. intake but he is trying to maintain hydration status. He does admit to having increasing shortness of breath with exertion as well as PND. He denies any weight gain, lower extremity edema, shortness breath at rest, chest pain, palpitations, nausea, vomiting, abdominal pain, change in bowel or urinary habits. He further denies any dizziness, lightheadedness or syncope. He has tried [id number] Tylenol severe flu with mild relief. He has positive sick contact with his who tested positive for RSV. He did not get his flu shot this year. In ED he remained hemodynamically stable. He was febrile with a temp of 38.1. He did not require oxygen supplementation. Influenza A+. Other notable lab abnormalities include thrombocytopenia 119, WBC 7.52, monocytosis 25, BUN 33, creatinine 1.57, glucose 109, troponin 0.114. Urinalysis was negative for infection but did reveal trace protein and +2 blood. Chest x-ray was negative for any acute cardiopulmonary abnormality. EKG revealed A. fib with a heart rate of 88 bpm, which is new for patient. Admission Exam Per Admitting Provider This is a 49-year-old male who has significant PMH of CAD with history of CABG x2, history of mitral valve replacement and tricuspid valve annuloplasty, HTN, HLD, ZEESHAN on CPAP, hypothyroidism, gout who presents to ED secondary to URI symptoms x2 days. Symptoms started Tuesday evening when he developed dry cough, myalgias, arthralgias, chills, sweats and wheezing. Symptoms persisted and continued to worsen. Cough has become more productive alternating between clear sputum and purulent sputum. He overall has poor appetite and poor p.o. intake but he is trying to maintain hydration status. He does admit to having increasing shortness of breath with exertion as well as PND. He denies any we ight gain, lower extremity edema, shortness breath at rest, chest pain, palpitations, nausea, vomiting, abdominal pain, change in bowel or urinary habits. He further denies any dizziness, lightheadedness or syncope. He has tried [id number] Tylenol severe flu with mild relief. He has positive sick contact with his who tested positive for RSV. He did not get his flu shot this year. In ED he remained hemodynamically stable. He was febrile with a temp of 38.1. He did not require oxygen supplementation. Influenza A+. Other notable lab abnormalities include thrombocytopenia 119, WBC 7.52, monocytosis 25, BUN 33, creatinine 1.57, glucose 109, troponin 0.114. Urinalysis was negative for infection but did reveal trace protein and +2 blood. Chest x-ray was negative for any acute cardiopulmonary abnormality. EKG revealed A. fib with a heart rate of 88 bpm, which is new for patient. Principal Diagnosis Influenza A, Elevated Troponins, Atrial Fibrillation, CAD (coronary artery disease) Discharge Exam Constitutional comfortable Eyes PERRL, conjunctivae normal, anicteric sclerae EOM intact bilaterally ENMT external ear and nose normal, oropharynx normal Neck normal visual inspection Respiratory normal respiratory effort, lungs clear to auscultation Cardiovascular RRR, no murmur, no edema Rate/Rhythm: + bradycardic and + irregularly irregular Gastrointestinal (Abdomen) normal bowel sounds, soft, nontender, no hepatosplenomegaly Musculoskeletal Head/Neck/Chest: normocephalic and head atraumatic Neurologic PERRL, EOMI, accommodation nl, no face palsy, no dysarthria CN's II-XI intact bilaterally Psychiatric A+Ox3, euthymic affect Discharge Data Allergies Allergy/AdvReac Type Severity Reaction Status Date / Time No Known Allergies Allergy Unverified 01/09/20 18:13 Consultations 01/09/20 17:10 ED Decision to Admit Stat 01/09/20 18:49 Consult Cardiology Routine Hospital Course (1) Influenza: -01/09/2020: This is a 49-year-old male who has significant PMH of CAD with history of CABG x2, history of mitral valve replacement and tricuspid valve annuloplasty, HTN, HLD, ZEESHAN on CPAP, hypothyroidism, gout who presents to ED secondary to URI symptoms x2 days. In ED he remained hemodynamically stable. He was febrile with a temp of 38.1. He did not require oxygen supplementation. Influenza A+. Other notable lab abnormalities include thrombocytopenia 119, WBC 7.52, monocytosis 25, BUN 33, creatinine 1.57, glucose 109, troponin 0.114. Urinalysis was negative for infection but did reveal trace protein and +2 blood. Chest x-ray was negative for any acute cardiopulmonary abnormality. -patient completed 5 days of Tamiflu (2) Elevated troponin: Atrial Fibrillation -admission EKG revealed A. fib with a heart rate of 88 bpm, which is new for patient -this new onset atrial fibrillation of unknown duration. Patient is asymptomatic in regards to his atrial fibrillation -because Gypdz2gfua score of 3 (CAD, HTN and hx of CHF), patient was started on heparin drip on 01/09/2020 -on Toprol-XL -01/10/2020: Patient is on IV heparin drip and cardiology plans to bridge to coumadin and coumadin 5 mg daily is to be started on 01/10/2020. Goal INR is 2 to 3. continue to monitor on telemetry -as per cardiology, the mildly elevated troponin on this admission is secondary to infectious process from influenza. "No evidence of acute coronary syndrome at this time. Preliminary review of bedside 2D transthoracic echocardiogram demonstrates normal bioprosthetic valve function, preserved LV systolic function, small posterior inferior wall motion abnormality which is unchanged compared to prior studies." -01/11/2020 because patient has bioprosthetic valve and continues to have atrial fibrillation, NOACs are not indicated as per cardiology service, therefor patient remains on heparin drip with daily coumadin. patient got additional coumadin by cardiology and total dose was 10 mg. -01/12/2020 INR is still subtherapeutic. Continue coumadin 5 mg daily for now and recheck INR on 01/13/2020 while on IV heparin drip. -01/13/2020. INR is 1.6. Patient on heparin drip. no chest pain. no palpitations. breathing on room air. no dizziness. no lightheadness. no hematuria. telemetry generally shows heart rate in the 80s but questionable episodes of bradycardia. patient received metoprolol at night as 25 mg and already got metoprolol 100 mg this AM. will plan on just continuing metoprolol 75 mg daily starting on 01/14/2020. currently continue heparin drip and coumadin as 5 mg daily -01/14/2020: INR on 01/14/2020 is 1.8 with the IV heparin drip Patient wants to go home on 01/14/2020 with the persistent atrial fibrillation and heart rates in the 50s -home dose Lasix and Lisinopril are held in the hospital because of low normotensive blood pressures while in hospital -Continue metoprolol, patient on a reduced dose now and therefore should be able to resume lisinopril on discharge. Patient also have IV volume load of 5 days of IV heparin therapy and may continue home dose Lasix discharge medication sent electronically to [facility] [address] [place] [address] Patient has scheduled follow ups with 01/18/2020 1:40 PM Provider Seb Sanderson Jr., PA-C Department [facility] (will need INR check by primary care doctor or follow-up with [facility] anticoagulation clinic) 01/22/2020 8:00 AM Provider GÉNESIS Perry Department Cardiology, [place] 01/29/2020 11:30 AM Provider GÉNESIS Harris Department Pulmonary Medicine, [facility] 03/18/2020 1:30 PM Provider GÉNESIS Perry Department Cardiology, [place] (3) CAD (coronary artery disease): -history of CABG x 2, mitral valve replacement, tricuspid valve annuloplasty, ASD repair in 2013 History of CHF 2/2 to valvular heart disease echocardiogram 07/2019 revealed EF 55 to 59%, significant RV enlargement, diffuse right ventricular hypokinesis, mitral valve bioprosthesis present -as per cardiology assessment on this admission, the troponins seen on this stay are not from acute coronary syndrome -on metoprolol, Aspirin Hold Lasix and lisinopril - volume status and blood pressure reassess in a.m. Daily weights, strict I's and O's Heart healthy low-sodium diet (4) Hypertension: -home dose Lasix and Lisinopril are held in the hospital because of low normotensive blood pressures while in hospital -Continue metoprolol, patient on a reduced dose now and therefore should be able to resume lisinopril on discharge. Patient also have IV volume load of 5 days of IV heparin therapy and may continue home dose Lasix (5) Thrombocytopenia: -appears to have chronic thrombocytopenia -platelet count 09/2017 was 136K, admission platelet count 119K -platelets are 90K on 01/12/2020 -123 K on 01/13/2020 (6) Microscopic hematuria: -urine analysis with +2 RBC even before systemic anticaogulation was started; however no gross bleeding or gross hematuria (7) HLD (hyperlipidemia): Continue statin (8) ZEESHAN on CPAP: CPAP at bedtime (9) Hypothyroidism: -normal TSH on this admission -Continue home dose levothyroxine (10) Gout: -Continue allopurinol and colchicine (Patient takes indomethacin as needed for gout attacks), no gout attack currently (11) DVT prophylaxis: IV Heparin a bridge to coumadin Total Time Total Time Spent Total Time Spent (In Minutes): 40 minutes Total Time Includes: Examination of the Patient, Discharge Planning, Medication Reconciliation and Communication With Other Providers Discharge Plan Discharge Items Patient Disposition: Home - Self-Care Reason For Visit: INFLUENZA A,NEW SET AFIB,ELEVATED TROPONIN Discharge Diagnosis: Influenza A, Elevated Troponins, Atrial Fibrillation, CAD (coronary artery disease) Condition on Discharge: Good Activity: Resume your previous activity Non-emergency contact: Primary Care Provider and Parts Control Clerk Call non-emergency contact if: you have any medication questions Follow-up/Referrals: Seb Sanderson PA-C [Primary Care Provider] - 01/18/20 1:40 pm Diet: Heart Healthy and Low Sodium (2gm) Addtl Attending Provider Instructions: INR on 01/14/2020 is 1.8 Patient wants to go home on 01/14/2020 with the persistent atrial fibrillation and heart rates in the 50s -home dose Lasix and Lisinopril are held in the hospital because of low normotensive blood pressures while in hospital -Continue metoprolol, patient on a reduced dose now and therefore should be able to resume lisinopril on discharge. Patient also have IV volume load of 5 days of IV heparin therapy and may continue home dose Lasix discharge medication sent electronically to [facility] [address] [place] [id number] Patient has scheduled follow ups with 01/18/2020 1:40 PM Provider Sbe Sanderson Jr., PA-C [facility] [address] (will need INR check by primary care doctor or follow-up with [facility] anticoagulation clinic) 01/22/2020 8:00 AM Provider GÉNESIS Perry Department [facility] 01/29/2020 11:30 AM Provider GÉNESIS Harris Department Pulmonary Medi [facility] 03/18/2020 1:30 PM Provider GÉNESIS Perry Department Cardiology, [facility] Pending Studies at Discharge: No Stand-Alone Forms: My [facility], Smoking Cessation Medications and DC Order Prescriptions: New warfarin [Coumadin] 5 mg Tablet 5 mg PO DAILY@1600 30 Days Qty: 30 RF: 0 metoprolol succinate 25 mg Tablet Extended Release 24 Hr 75 mg PO QAM 30 Days Qty: 90 RF: 0 Continued atorvastatin 80 mg tablet 80 mg PO HS RF: 0 colchicine 0.6 mg tablet 0.6 mg PO HS RF: 0 allopurinol 300 mg tablet 300 mg PO AMHS RF: 0 furosemide 80 mg tablet 80 mg PO QAM RF: 0 levothyroxine 50 mcg tablet 50 mcg PO QAM RF: 0 lisinopril 2.5 mg tablet 2.5 mg PO QAM RF: 0 citalopram 20 mg Tablet 20 mg PO DAILY RF: 0 indomethacin 50 mg Capsule 50 mg PO TID PRN (Reason: .GOUT FLARE) RF: 0 aspirin [Nhi Chewable Aspirin] 81 mg Tablet,Chewable 81 mg PO DAILY RF: 0 Discontinued metoprolol succinate 100 mg Tablet Extended Release 24 Hr 100 mg PO DAILY RF: 0 Discharge Orders: Discharge Order (Routine); Ordered 01/14/20 Ordered By: Len Pierce/Other Patient Handouts: Atrial Fibrillation Dc Admission Data Admit Date/Time: 01/09/20 17:42 Attending Provider: Len Perkins Admit Provider: Mary Lou Boyer Primary Care Provider: Seb Sanderson Other Providers: Mary Lou Boyer ; Jules Forde
== END 2020-01-14 11:10 | disposition home or self-care (01) | DRG 195 ==
LOC: ED 15:32 → 2S 17:42 → SUATTDRO 17:42 → 2S 18:13 → 2W 01-12 14:54

== ENCOUNTER 2024-10-14 09:31 | Inpatient (IN) ==
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
[2024-10-14 10:24] LABS: Basophils # (auto) 0.01 K/uL (0.00-0.20); Basophils % (auto) 0.1 %; Eosinophils # (auto) 0.06 K/uL (0.00-0.50); Eosinophils % (auto) 0.7 %; Hematocrit (blood only) 44.3 % (42.0-52.0); Hemoglobin 14.9 g/dl (14.0-18.0); Immature Granulocytes # (auto) 0.04 K/uL (0.01-0.20); Immature Granulocytes % (auto) 0.5 %; Lymphocytes # (auto) 0.98 K/uL (1.20-3.40); Lymphocytes % (auto) 11.4 %; Mean Corpuscular Hemoglobin 32.6 pg (25.0-34.0); Mean Corpuscular Hgb Conc 33.6 g/dL (32.0-36.0); Mean Corpuscular Volume 96.9 fL (80.0-100.0); Mean Platelet Volume 10.3 fL (9.4-12.4); Monocytes # (auto) 0.85 K/uL (0.11-0.59); Monocytes % (auto) 9.9 %; Neutrophils # (auto) 6.68 K/uL (1.40-6.50); Neutrophils % (auto) 77.4 %; Platelet Count 147 K/uL (130-400); RDW Coefficient of Variation 15.3 % (11.5-14.5); RDW Standard Deviation 54.9 fL (36.4-46.3); Red Blood Count 4.57 M/uL (4.70-6.10); White Blood Count 8.62 K/ul (4.8-10.8)
[2024-10-14 10:41] LABS: Albumin Globulin Ratio 1.4 (0.9-2); BUN Creatinine Ratio 15.7 (10-20); Bilirubin,Total 1.2 mg/dl (0.2-1.0); Calcium 8.6 mg/dl (8.6-10.3); Creatinine Clr Calc Pharmacy 84.4 ml/min; Globulin 2.8 gm/dl (2.5-4.0); Potassium 4.7 mmol/L (3.5-5.1); Total Protein 6.8 gm/dl (6.0-8.3)
[2024-10-14 10:48] LABS: Troponin I High Sensitivity 28.6 pg/ml (0-20)
--- NOTE | 2024-10-14 10:58 | XRay Report ---
XR chest 1V portable CLINICAL HISTORY: Chest pain, nonspecific COMPARISON STUDY: Chest radiograph and chest CT May 20, 2020. FINDINGS: There are median sternotomy wires and prosthetic mitral and tricuspid valves. Moderate card iomegaly is unchanged. There is no evidence for pulmonary edema. Reticulonodular interstitial thicken ing is unchanged. No evidence for overt pulmonary edema. There is no pneumothorax or pleural effusion . There is no consolidation. IMPRESSION: No acute cardiopulmonary findings. Stable cardiomegaly. ACT 112: Negative or not required by law. Electronically signed by: Pete Knott M.D. 10/14/2024 10:56 AM
[2024-10-14 10:59] LABS: INR 1.6 (0.9-1.1); Prothrombin Time 16.8 Seconds (9.0-12.0)
[2024-10-14 11:34] LABS: Adenovirus PCR Not Detected (NotDetected); Bordetella parapertussis PCR Not Detected (NotDetected); Bordetella pertussis PCR Not Detected (NotDetected); Chlamydia pneumoniae PCR Not Detected (NotDetected); Coronavirus 229E PCR Not Detected (NotDetected); Coronavirus CoV-2 (COVID19)PCR Not Detected (NotDetected); Coronavirus HKU1 PCR Not Detected (NotDetected); Coronavirus NL63 PCR Not Detected (NotDetected); Coronavirus OC43PCR Not Detected (NotDetected); Human Metapneumovirus PCR Not Detected (NotDetected); Influenza A PCR Not Detected (NotDetected); Influenza B PCR Not Detected (NotDetected); Mycoplasma pneumoniae PCR Not Detected (NotDetected); Parainfluenza Virus 1 PCR DETECTED (NotDetected); Parainfluenza Virus 2 PCR Not Detected (NotDetected); Parainfluenza Virus 3 PCR Not Detected (NotDetected); Parainfluenza Virus 4 PCR Not Detected (NotDetected); Respiratory Syncytial VirusPCR Not Detected (NotDetected); Rhinovirus/Enterovirus PCR Not Detected (NotDetected)
[2024-10-14] MEDS: AZITHROMYCIN 250 MG TAB PO ONE (11:49)
[2024-10-14] MEDS: cefTRIAXone SODIUM 2,000 MG/50 ML BAG IV STA (11:49)
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
[2024-10-14] MEDS: predniSONE 20 MG TAB PO STA (13:29)
[2024-10-14] MEDS ORDERED: POLYETHYLENE (MIRALAX) 17 GM PACK PO PRN (14:30)
[2024-10-14] MEDS ORDERED: ONDANSETRON INJ 2 MG/ML 2 ML VIAL IV PRN (14:30)
[2024-10-14] MEDS ORDERED: ALBUTEROL HFA 8 GM INHALER INH PRN (14:30)
[2024-10-14] MEDS ORDERED: METOPROLOL TARTRATE 1 MG/ML VIAL IV PRN (14:30)
[2024-10-14] MEDS ORDERED: ACETAMINOPHEN 325 MG TAB PO PRN (14:30)
[2024-10-14] MEDS ORDERED: FAMOTIDINE 20 MG TAB PO PRN (14:30)
--- NOTE | 2024-10-14 15:10 | Electrocardiogram Report ---
Test Reason : Blood Pressure : */* mmHG Vent. Rate : 93 BPM Atrial Rate : * BPM P-R Int : * ms QRS Dur : 100 ms QT Int : 376 ms P-R-T Axes : * 20 -22 degrees QTcB Int : 467 ms Atrial fibrillation Nonspecific ST abnormality Abnormal ECG When compared with ECG of 23-Apr-2020 22:08, No significant change was found Confirmed by Davonte Prado ([id number]) on 10/14/2024 3:09:51 PM Referred By: REFERRED SELF Confirmed By: Davonte Prado
[2024-10-14] MEDS: WARFARIN SOD 7.5 MG TAB PO ONE (16:15)
[2024-10-14] MEDS: ENOXAPARIN INJ 120 MG/0.8 ML SYR SQ SCH (16:15)
[2024-10-14] MEDS: guaiFENesin 600 MG TABCR PO SCH (20:51)
[2024-10-14] MEDS: ATORVASTATIN 40 MG TAB PO SCH (20:52)
[2024-10-14] MEDS: allopurinoL 300 MG TAB PO SCH (20:52)
[2024-10-14] MEDS ORDERED: MELATONIN 3 MG TAB PO PRN (21:00)
[2024-10-15 03:08] VITALS: RESP 18
[2024-10-15] MEDS: LEVOTHYROXINE SODIUM 50 MCG TABLET PO SCH (05:57)
[2024-10-15 07:36] VITALS: BP 109/70; TEMP 97.6; O2SAT 93
[2024-10-15 07:36] LABS: Basophils # (auto) 0.01 K/uL (0.00-0.20); Basophils % (auto) 0.1 %; Eosinophils # (auto) 0.03 K/uL (0.00-0.50); Eosinophils % (auto) 0.4 %; Hematocrit (blood only) 44.5 % (42.0-52.0); Hemoglobin 14.7 g/dl (14.0-18.0); Immature Granulocytes # (auto) 0.03 K/uL (0.01-0.20); Immature Granulocytes % (auto) 0.4 %; Lymphocytes # (auto) 1.59 K/uL (1.20-3.40); Lymphocytes % (auto) 19.6 %; Mean Corpuscular Hemoglobin 32.3 pg (25.0-34.0); Mean Corpuscular Volume 97.8 fL (80.0-100.0); Mean Platelet Volume 10.8 fL (9.4-12.4); Monocytes # (auto) 1.07 K/uL (0.11-0.59); Monocytes % (auto) 13.2 %; Neutrophils # (auto) 5.37 K/uL (1.40-6.50); Neutrophils % (auto) 66.3 %; Platelet Count 125 K/uL (130-400); RDW Coefficient of Variation 15.8 % (11.5-14.5); RDW Standard Deviation 57.3 fL (36.4-46.3); Red Blood Count 4.55 M/uL (4.70-6.10)
[2024-10-15 07:49] LABS: BUN Creatinine Ratio 27.3 (10-20); Bilirubin Direct 0.2 mg/dl (0-0.2); Bilirubin,Total 1.3 mg/dl (0.2-1.0); Calcium 8.6 mg/dl (8.6-10.3); Potassium 4.4 mmol/L (3.5-5.1); Total Protein 6.6 gm/dl (6.0-8.3)
[2024-10-15 07:56] LABS: Troponin I High Sensitivity 37.1 pg/ml (0-20)
[2024-10-15] MEDS: lisinopril 2.5 MG TAB PO SCH (08:00)
[2024-10-15] MEDS: ASPIRIN 81 MG ECTAB PO SCH (08:00)
[2024-10-15] MEDS: FUROSEMIDE 40 MG TAB PO SCH (08:00)
[2024-10-15] MEDS: CITALOPRAM 20 MG TAB PO SCH (08:00)
[2024-10-15 08:01] LABS: INR 1.6 (0.9-1.1)
[2024-10-15] MEDS: predniSONE 20 MG TAB PO SCH (08:02)
[2024-10-15] MEDS: METOPROLOL SUCC 25MG EXT REL TAB PO SCH (08:02)
[2024-10-15] MEDS ORDERED: CITALOPRAM 20 MG TAB PO SCH (09:00)
[2024-10-15 10:37] VITALS: PULSE 72
--- NOTE | 2024-10-15 10:38 | Discharge Summary ---
Discharge Summary Date of Service October 15, 2024 Principal Dx & Hospital Course #1 = Principal Diagnosis (1) Parainfluenza virus bronchitis: (2) Elevated troponin: (3) CAD (coronary artery disease): (4) Hypertension: Plan This is a 54-year-old male who has a significant past medical history of CAD hx of cabg x2 (saphenous vein graft to the right coronary artery and diagonal- 2013), chronic atrial fibrillation, chronic right-sided heart failure, hx of tricuspid and mitral valve repair, HTN, ZEESHAN on CPAP, HLD, hypothyroidism, gout, prediabetes, CKD stage III, obesity, depression who presents to ED with URI sx x 2 days. Parainfluenza Bronchitis admit to med tele pt received ceftriaxone and azithromycin in ED antibiotics not indicated given viral in nature CXR: No acute cardiopulm disease prednisone 40mg daily x 5 days prn inhaler ( pt does not like nebs), incentive spirometry, flutter valve and muccinex supportive care, droplet precautions CAD hx of CABG Hx of MV repair/Hx of TV annuloplasty Chronic atrial fibrillation on wafarin Subtherapeutic INR HTN/HLD Chronic R sided heart failure Elevated troponin continue home meds of asa, statin, metoprolol, lisinopril, warfarin Troponin remained flat, EKG unchanged and patient without chest pain he feels well on day of discharge Echo: mild concentric left ventricular hypertrophy, no regional wall motion abnormality noted, LVEF 50 to 55%, left atrium severely dilated, mechanical valve bioprosthesis present, relatively unchanged from echocardiogram on 2021 INR 1.6 - will encourage pt to take 7.5mg today and then resume home regimen tomorrow ZEESHAN: pt states does not use Cpap at HS Elevated LFTS: no abd pain or GI sx, repeat in a.m., recommend OP US Chronic conditions: Gout, PreDM, Obesity, Depression continue home meds DVT ppx: Warfarin PCP: Eileen Brooks FULL CODE Dispo: Discharge to home Notes For Next Care Provider Please obtain PT/INR at hospital follow up, INR 1.6 on day of discharge. Pt had elevated LFTS while in pt, ast/alt in 50s. Recommend repeat at OP and if remains elevated outpatient liver US. Tested + for parainfluenza - treated supportively Admitted due to elevated troponin and previous cardiac hx. Medication Changes From Visit Prednisone 40mg daily for additional 3 days. Admission HPI Per Admitting Provider This is a 54-year-old male who has a significant past medical history of CAD hx of cabg x2 (saphenous vein graft to the right coronary artery and diagonal- 2013), chronic atrial fibrillation, chronic right-sided heart failure, hx of tricuspid and mitral valve repair, HTN, ZEESHAN on CPAP, HLD, hypothyroidism, gout, prediabetes, CKD stage III, obesity, depression who presents to ED with URI sx x 2 days. He reports sinus congestion, rhinorrhea, productive cough of clear phlegm, sore throat, chills and decreased appetite. He also reports PEÑA and with coughing. He denies pato chest pain except when he is coughing. He has been taking OTC Muccinex and dayquil. is at bedside who also helps elicit hist ory. He does not want to stay in the hospital, but is agreeable. 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 Last echo was 06/11/22 which revealed EF 50-54%, LA severely enlarged, mitral valve bioprosthesis present, moderately dilated RV, moderate diffuse right ventricular hypokinesis, evidence of previous tricuspid valve annuloplasty. He denies tobacco, alcohol or elicit drugs. Admission Exam Per Admitting Provider constitutional: WD/WN, vitals as above, NAD, sitting up in bed, pleasant, conversing easily Head: Normocephalic, Atraumatic Eyes: PERRL, conjunctivae normal, anicteric sclerae ENMT: external ear and nose normal, oropharynx normal Neck: trachea midline, no thyromegaly normal visual inspection Respiratory: normal respiratory effort, lungs clear to auscultation, + RUL insp/exp wheeze, no rales, rhonchi. Normal insp/exp effort, no accessory muscle use Cardiovascular: IRR/IRR, no murmur, trace pre tibial L > R edema Vessels: no JVD or carotid bruit Chest: normal inspection of chest Abdomen: normal bowel sounds, soft, nontender, no hepatosplenomegaly Musculoskeletal: no cyanosis or clubbing, extremities motor strength 5/5 Skin: no rashes, warm and dry normal turgor Neurologic: PERRL, EOMI, accommodation nl, no face palsy, no dysarthria CN's II-XI intact bilaterally and moves all extremities Psychiatric: A+Ox3, flat affect Lymphatic: no cervical or axillary lymphadenopathy : deferred Discharge Exam Gen: WD/WN, NAD, A&O x3 HEENT: Normocephalic, atraumatic, conjunctivae moist, sclerae anicteric, mucous membranes moist. Lung: Clear to Auscultation bilaterally, b/l upper lobe wheeze/rhonchi, no rales Heart: IRR/IRR, no murmurs, rubs, or gallops Abdomen: Soft, NT, ND +BS x 4 Extremities: trace pretibial edema Skin: Warm, no rash, negative turgor. Updated Medication List Medication Instructions Recorded Confirmed Type allopurinol 300 mg tablet 300 mg PO AMHS 01/09/20 10/14/24 History aspirin 81 mg chewable tablet 81 mg PO QAM 01/09/20 10/14/24 History (Nhi Chewable Low Dose Aspirin) atorvastatin 80 mg tablet 80 mg PO HS 01/09/20 10/14/24 History citalopram 20 mg tablet 20 mg PO QAM 01/09/20 10/14/24 History furosemide 80 mg tablet 40 mg PO QAM 01/09/20 10/14/24 History indomethacin 50 mg capsule 50 mg PO TID PRN GOUT FLARE UP 01/09/20 10/14/24 History levothyroxine 50 mcg tablet 50 mcg PO QAM 01/09/20 10/14/24 History lisinopril 2.5 mg tablet 2.5 mg PO QAM 01/09/20 10/14/24 History metoprolol succinate 25 mg 25 mg PO QAM 05/27/21 10/14/24 History tablet,extended release 24 hr warfarin 7.5 mg tablet 5 - 7.5 mg PO UD 05/27/21 10/14/24 History citalopram 10 mg tablet 10 mg PO QAM 10/14/24 10/14/24 History prednisone 20 mg tablet 40 mg (2 x 20 mg) PO DAILY 3 days 10/15/24 Rx #6 tabs Hospital Stay Data Consultations 10/14/24 12:23 ED Decision to Admit Stat Pending Results Patient Have Any Pending Studies at Discharge: No Discharge Instructions Given to Patient (Per Discharging Provider) MEDICATION CHANGES: Prednisone 40mg one tablet by mouth daily for 3 more days, next dose due 10/16/24. Please continue all other medications as prescribed. Regarding your warfarin dosage, please take 7.5mg today, 10/15/24. On 10/16/24 please resume your current regimen. Follow up with Coumadin clinic as scheduled. SUMMARY OF TEST RESULTS: You were admitted to hospital secondary to elevated troponin and testing positive for parainfluenza. Your elevated troponin remained relatively stable. An echocardiogram was performed which was without any acute change from your echocardiogram from 2021. Your parainfluenza symptoms were treated conservatively. PENDING TEST RESULTS: None RECOMMENDATIONS FOR FOLLOW-UP: Please follow-up with primary care provider as scheduled. Please follow-up with Coumadin clinic to have a repeat INR checked as scheduled. Please resume your warfarin as above. Continue supportive care for your parainfluenza infection. Your liver function tests were elevated on admission. Please have your primary care provider repeat this and order an Ultrasound of your liver. OTHER INSTRUCTIONS: Seek medical attention if you have: * temperature above 101 * chest pain or trouble breathing * abdominal pain, nausea, vomiting * diarrhea, dark stools or bloody stools * any unanswered questions or concerns Call 911 if symptoms are severe. Please take good care of yourself. It has been a pleasure taking care of you. Please take care of yourself. If you have any questions regarding your recent hospitalization please contact [facility] and request Mandeep Silvestre @ [phone]. Brigette Nicholson PA-C Total Time Total Time Spent Total Time Spent (In Minutes): 45 minutes Supervising Physician Co-Signing Physician Notes Patient seen and examined Agree with findings and plans as detailed by Brigette Nicholson PA-C
--- NOTE | 2024-10-15 15:53 | Electrocardiogram Report ---
Test Reason : Blood Pressure : */* mmHG Vent. Rate : 84 BPM Atrial Rate : 113 BPM P-R Int : * ms QRS Dur : 114 ms QT Int : 422 ms P-R-T Axes : * 42 -56 degrees QTcB Int : 498 ms Atrial fibrillation Possible Inferior infarct , age undetermined Nonspecific ST abnormality Abnormal ECG When compared with ECG of 15-Oct-2024 07:58, (unconfirmed) No significant change was found Confirmed by Davonte Prado ([id number]) on 10/15/2024 3:52:58 PM Referred By: REFERRED SELF Confirmed By: Davonte Prado
--- NOTE | 2024-10-15 15:55 | Electrocardiogram Report ---
Test Reason : Blood Pressure : */* mmHG Vent. Rate : 85 BPM Atrial Rate : 80 BPM P-R Int : * ms QRS Dur : 112 ms QT Int : 456 ms P-R-T Axes : * 47 19 degrees QTcB Int : 542 ms Atrial fibrillation Nonspecific T wave abnormality Abnormal ECG When compared with ECG of 14-Oct-2024 10:30, Minimal criteria for Anterior infarct are no longer Present QT has lengthened Confirmed by Davonte Prado ([id number]) on 10/15/2024 3:55:06 PM Referred By: REFERRED SELF Confirmed By: Davonte Prado
[2024-10-15] MEDS ORDERED: WARFARIN SOD 7.5 MG TAB PO SCH (16:00)
[2024-10-16] MEDS ORDERED: WARFARIN SOD 5 MG TAB PO SCH (16:00)
== END 2024-10-15 11:47 | disposition home or self-care (01) | DRG 202 ==
LOC: ED 09:31 → 2S 12:29 → SUATTDRO 12:29 → 2S 14:31